=== PATIENT | female | born 1990 | race Hispanic/Latino ===

== ENCOUNTER 2017-02-27 07:50 | Inpatient (IN) | payer OTHER ==
[~2017-02-27] VITALS: Ht 152.4 cm; Wt 74.4 kg
[2017-02-27] VITALS (18 sets, daily range): BP systolic 95–146; BP diastolic 55–90
[~2017-02-27 07:50] MED LIST: GENTASOL0.3 % OD; NO HOME MEDICATION; OB COMPLET2 PO
[2017-02-27 09:31] LABS: HEMATOCRIT 34.3 % (37.0-47.0); HEMOGLOBIN 11.5 g/dl (12.0-16.0); IMMATURE GRANULOCYTES 1.1 % (0.0-1.0); MEAN CELL VOLUME 87.3 fL CALC (80.0-100.0); MEAN CORPUSCULAR HGB 29.3 pG CALC (26.0-32.0); MEAN CORPUSCULAR HGB CONC 33.5 g/L CALC (32.0-36.0); NEUT# 5.57 thou/uL (2.00-7.15); RED BLOOD COUNT 3.93 mill/uL (4.20-5.60); RED CELL DISTRI WIDTH 14.5 % (11.5-15.5)
[2017-02-27 09:44] LABS: ALBUMIN 3.1 g/dL (3.2-5.0); ALKALINE PHOSPHATASE 201 u/l (38-126); ANION GAP 11 (6-22 (CALC)); BILIRUBIN, TOTAL 0.4 mg/dL (0.0-1.4); BUN 5 mg/dL (7-17); BUN/CREATININE RATIO 11 (12-20 (CALC)); CALCIUM 8.7 mg/dL (8.4-10.2); CARBON DIOXIDE 22 mmol/l (22-30); CHLORIDE 107 mmol/l (95-108); CREATININE 0.5 mg/dL (0.5-1.0); GFR > 60 ML/MIN (>=60 (CALC)); GFR FOR AFR.AMER. > 60 ML/MIN (>=60 (CALC)); GLUCOSE 67 mg/dL (65-105); POTASSIUM 3.9 mmol/l (3.5-5.1); SGOT/AST 22 u/l (14-36); SGPT/ALT 32 u/l (9-52); SODIUM 136 mmol/l (137-146); TOTAL PROTEIN 6.3 g/dL (6.3-8.2)
[2017-02-28 06:00] VITALS: BP 98/56
[2017-02-28 06:08] LABS: HEMATOCRIT 28.9 % (37.0-47.0); HEMOGLOBIN 9.7 g/dl (12.0-16.0); IMMATURE GRANULOCYTES 0.9 % (0.0-1.0); MEAN CORPUSCULAR HGB 29.2 pG CALC (26.0-32.0); MEAN CORPUSCULAR HGB CONC 33.6 g/L CALC (32.0-36.0); NEUT# 8.42 thou/uL (2.00-7.15); RED BLOOD COUNT 3.32 mill/uL (4.20-5.60); RED CELL DISTRI WIDTH 14.6 % (11.5-15.5)
[2017-02-28 19:01] VITALS: BP 108/62
[2017-03-01 00:19] VITALS: BP 108/55
[2017-03-01 04:05] VITALS: BP 118/62
[2017-03-01] MEDS ORDERED: IBUPROFEN600 MG PO (07:54)
== END 2017-03-01 13:10 | disposition home or self-care (01) | DRG 775 ==
LOC: OBOP 07:50 → OB 07:50 → OBOP 07:59 → OB 08:00
PROVIDERS: ADMIT Obstetrics & Gynecology; ATTEND Obstetrics & Gynecology
PROC: 10E0XZZ Delivery of Products of Conception, External Approach (ICD-10-PCS; principal; 2017-02-27)
PROC: 10907ZC Drainage of Amniotic Fluid, Therapeutic from Products of Conception, Via Natural or Artificial Opening (ICD-10-PCS; 2017-02-27)
PROC: 3E033VJ Introduction of Other Hormone into Peripheral Vein, Percutaneous Approach (ICD-10-PCS; 2017-02-27)
DX: O48.0 Post-term pregnancy (principal); O77.0 Labor and delivery complicated by meconium in amniotic fluid; O69.81X0 Labor and delivery complicated by cord around neck, without compression, not applicable or unspecified; Z3A.41 41 weeks gestation of pregnancy; Z37.0 Single live birth

== ENCOUNTER 2017-03-29 18:23 | Emergency (ER) | payer SELFPAY ==
[~2017-03-29] VITALS: Ht 152.4 cm; Wt 85.0 kg
[~2017-03-29 18:23] MED LIST changes: +IBUPROFEN600 MG PO
[2017-03-29 19:22] LABS: URINE BILIRUBIN - DIPSTICK NEGATIVE (NEGATIVE); URINE BLOOD DIPSTICK MODERATE (NEGATIVE); URINE COLOR YELLOW; URINE GLUCOSE - DIPSTICK NEGATIVE (NEGATIVE); URINE KETONE NEGATIVE (NEGATIVE); URINE NITRITE - DIPSTICK NEGATIVE (Negative); URINE PH 6.5 (4.5-8.0); URINE PROTEIN - DIPSTICK NEGATIVE (NEG-TRACE); URINE UROBILINOGEN - DIPSTICK 0.2 E.U./dL (0.2)
[2017-03-29 20:21] LABS: URINE CLARITY CLOUDY; URINE LEUK ESTERASE MODERATE (NEGATIVE)
[2017-03-29 20:29] LABS: URINE BACTERIA FEW hpf; URINE RBC TNTC RBC/hpf (0-5); URINE SQUAMOUS EPITHELIAL CELL FEW EPI/hpf (0-FEW); URINE WBC TNTC WBC/hpf (0-5)
[2017-03-29] MEDS ORDERED: CEPHALEXIN500 MG PO (20:42)
[2017-03-29 21:13] VITALS: BP 112/68
== END 2017-03-29 21:13 | disposition home or self-care (01) | DRG 690 ==
LOC: ED 18:23
PROVIDERS: Emergency Medicine
DX: N39.0 Urinary tract infection, site not specified (principal); H57.12 Ocular pain, left eye; N61.0 Mastitis without abscess; R51 Headache; R50.9 Fever, unspecified

== ENCOUNTER 2019-05-08 03:03 | Emergency (ER) | payer SELFPAY ==
[~2019-05-08] VITALS: Ht 152.4 cm; Wt 68.0 kg
[~2019-05-08 03:03] MED LIST changes: +CEPHALEXIN500 MG PO
[2019-05-08] MEDS ORDERED: KEFLEX500 M1 PO (03:32)
[2019-05-08 03:40] VITALS: BP 114/72
== END 2019-05-08 03:43 | disposition home or self-care (01) | DRG 601 ==
LOC: ED 03:03
DX: N61.0 Mastitis without abscess (principal)

== ENCOUNTER 2020-04-08 18:05 | Emergency (ER) | payer SELFPAY ==
[~2020-04-08] VITALS: Ht 152.4 cm; Wt 75.5 kg
[~2020-04-08 18:05] MED LIST changes: +KEFLEX500 M1 PO
[2020-04-08] MEDS ORDERED: NAPROXEN500 MG PO (19:14)
[2020-04-08 19:20] VITALS: BP 113/69
== END 2020-04-08 19:20 | disposition home or self-care (01) | DRG 563 ==
LOC: ED 18:05
DX: S43.402A Unspecified sprain of left shoulder joint, initial encounter (principal); X50.0XXA Overexertion from strenuous movement or load, initial encounter; Y93.89 Activity, other specified; Y92.003 Bedroom of unspecified non-institutional (private) residence as the place of occurrence of the external cause

== ENCOUNTER 2021-01-02 16:11 | Emergency (ER) | payer SELFPAY ==
[~2021-01-02] VITALS: Ht 152.4 cm; Wt 65.0 kg
[~2021-01-02 16:11] MED LIST changes: +NAPROXEN500 MG PO
[2021-01-02 17:09] LABS: HEMATOCRIT 38.2 % (37.0-47.0); HEMOGLOBIN 12.7 g/dl (12.0-16.0); IMMATURE GRANULOCYTES 0.3 % (0.0-5.0); MEAN CORPUSCULAR HGB 30.2 pG CALC (26.0-32.0); MEAN CORPUSCULAR HGB CONC 33.2 g/dL CAL (32.0-36.0); NEUT# 4.56 thou/uL (2.00-7.15); RED BLOOD COUNT 4.2 mill/uL (4.20-5.60)
[2021-01-02 17:20] LABS: ANION GAP 12 (6-22 (CALC)); BILIRUBIN, TOTAL 0.5 mg/dL (0.0-1.4); BUN 12 mg/dL (7-17); BUN/CREATININE RATIO 20 (12-20 (CALC)); CARBON DIOXIDE 26 mmol/l (22-30); CHLORIDE 103 mmol/l (95-108); CREATININE 0.6 mg/dL (0.5-1.0); GFR > 60 ML/MIN (>=60 (CALC)); GFR FOR AFR.AMER. > 60 ML/MIN (>=60 (CALC)); LIPASE 67 u/l (23-300); POTASSIUM 3.8 mmol/l (3.5-5.1); SGOT/AST 32 u/l (14-36); SODIUM 137 mmol/l (137-146)
[2021-01-02 17:23] LABS: ALBUMIN 4.6 g/dL (3.2-5.0); ALKALINE PHOSPHATASE 82 u/l (38-126); TOTAL PROTEIN 8.2 g/dL (6.3-8.2)
[2021-01-02 19:30] LABS: URINE BILIRUBIN - DIPSTICK NEGATIVE (NEGATIVE); URINE BLOOD DIPSTICK LARGE (NEGATIVE); URINE COLOR YELLOW; URINE GLUCOSE - DIPSTICK NEGATIVE (NEGATIVE); URINE KETONE NEGATIVE (NEGATIVE); URINE LEUK ESTERASE NEGATIVE (NEGATIVE); URINE NITRITE - DIPSTICK NEGATIVE (Negative); URINE PROTEIN - DIPSTICK NEGATIVE (NEG-TRACE); URINE SPECIFIC GRAVITY <=1.005; URINE UROBILINOGEN - DIPSTICK 0.2 E.U./dL (0.2)
[2021-01-02 19:45] LABS: URINE SQUAMOUS EPITHELIAL CELL FEW EPI/hpf (0-FEW); URINE WBC 0-2 WBC/hpf (0-5)
[2021-01-02] MEDS ORDERED: EQ OMEPRAZOLE20 MG PO (19:49)
[2021-01-02 20:10] VITALS: BP 112/60
== END 2021-01-02 20:10 | disposition home or self-care (01) | DRG 392 ==
LOC: ED 16:11
PROVIDERS: Family Medicine
DX: K29.70 Gastritis, unspecified, without bleeding (principal)
CPT/HCPCS: Q9967

== ENCOUNTER 2021-09-18 17:14 | Emergency (ER) | payer SELFPAY ==
[~2021-09-18] VITALS: Ht 152.4 cm; Wt 72.0 kg
[~2021-09-18 17:14] MED LIST changes: +EQ OMEPRAZOLE20 MG PO
[2021-09-18] MEDS ORDERED: AMOX/K CLAV875 M1 PO (19:57)
[2021-09-18 20:10] VITALS: BP 110/63
== END 2021-09-18 20:10 | disposition home or self-care (01) | DRG 159 ==
LOC: ED 17:14
DX: K04.7 Periapical abscess without sinus (principal)

== ENCOUNTER 2022-05-26 16:24 | Emergency (ER) | payer SELFPAY ==
[~2022-05-26] VITALS: Ht 152.4 cm; Wt 100.0 kg
[~2022-05-26 16:24] MED LIST changes: +AMOX/K CLAV875 M1 PO
[2022-05-26 16:33] VITALS: BP 111/74
[2022-05-26 16:45] VITALS: BP 111/69
[2022-05-26] MEDS ORDERED: PREDNISONE50 MG PO (16:56)
[2022-05-26 17:00] VITALS: BP 113/79
[2022-05-26 17:15] VITALS: BP 108/76
[2022-05-26 17:25] VITALS: BP 108/76
== END 2022-05-26 17:25 | disposition home or self-care (01) | DRG 159 ==
LOC: ED 16:24
DX: M26.621 Arthralgia of right temporomandibular joint (principal)

== ENCOUNTER 2022-09-24 08:26 | Emergency (ER) | payer SELFPAY ==
[~2022-09-24] VITALS: Ht 152.4 cm; Wt 86.0 kg
[~2022-09-24 08:26] MED LIST changes: +PREDNISONE50 MG PO
[2022-09-24 09:01] VITALS: BP 138/69
[2022-09-24 09:08] LABS: HEMATOCRIT 40.8 % (37.0-47.0); HEMOGLOBIN 13.7 g/dl (12.0-16.0); IMMATURE GRANULOCYTES 0.6 % (0.0-5.0); MEAN CELL VOLUME 91.9 fL CALC (80.0-100.0); MEAN CORPUSCULAR HGB 30.9 pG CALC (26.0-32.0); MEAN CORPUSCULAR HGB CONC 33.6 g/dL CAL (32.0-36.0); NEUT# 5.57 thou/uL (2.00-7.15); RED BLOOD COUNT 4.44 mill/uL (4.20-5.60); RED CELL DISTRI WIDTH 12.6 % (11.5-15.5)
[2022-09-24 09:22] LABS: ALBUMIN 4.6 g/dL (3.2-5.0); ALKALINE PHOSPHATASE 74 u/l (38-126); ANION GAP 12 (6-22 (CALC)); BILIRUBIN, TOTAL 0.3 mg/dL (0.0-1.4); BUN 9 mg/dL (7-17); BUN/CREATININE RATIO 17 (12-20 (CALC)); CARBON DIOXIDE 26 mmol/l (22-30); CHLORIDE 105 mmol/l (95-108); CREATININE 0.6 mg/dL (0.5-1.0); GFR FOR AFR.AMER. > 60 ML/MIN (>=60 (CALC)); GFR OTHER RACES > 60 ML/MIN (>=60 (CALC)); LIPASE 40 u/l (23-300); POTASSIUM 4.3 mmol/l (3.5-5.1); SGOT/AST 39 u/l (14-36); SODIUM 139 mmol/l (137-146); TOTAL PROTEIN 8.4 g/dL (6.3-8.2)
[2022-09-24 09:31] VITALS: BP 100/35
[2022-09-24 10:28] LABS: URINE BILIRUBIN - DIPSTICK NEGATIVE (NEGATIVE); URINE BLOOD DIPSTICK NEGATIVE (NEGATIVE); URINE GLUCOSE - DIPSTICK NEGATIVE (NEGATIVE); URINE KETONE NEGATIVE (NEGATIVE); URINE LEUK ESTERASE NEGATIVE (NEGATIVE); URINE PH 6.5 (4.5-8.0); URINE PROTEIN - DIPSTICK NEGATIVE (NEG-TRACE); URINE SPECIFIC GRAVITY <=1.005; URINE UROBILINOGEN - DIPSTICK 0.2 E.U./dL (0.2)
[2022-09-24 10:29] LABS: URINE COLOR STRAW; URINE NITRITE - DIPSTICK NEGATIVE (Negative)
[2022-09-24 10:30] VITALS: BP 106/71
[2022-09-24] MEDS ORDERED: ZOFRAN4 MG/TAB PO (11:23)
[2022-09-24] MEDS ORDERED: MIRALAX17 GM PO (11:24)
[2022-09-24 11:48] VITALS: BP 106/71
== END 2022-09-24 11:48 | disposition home or self-care (01) | DRG 392 ==
LOC: ED 08:26
PROVIDERS: Family Medicine
DX: R10.9 Unspecified abdominal pain (principal); Z20.822 Contact with and (suspected) exposure to COVID-19
CPT/HCPCS: Q9967

== ENCOUNTER 2023-10-09 17:51 | Emergency (ER) | payer SELFPAY ==
[~2023-10-09] VITALS: Ht 152.4 cm; Wt 82.5 kg
[~2023-10-09 17:51] MED LIST changes: +MIRALAX17 GM PO; +ZOFRAN4 MG/TAB PO
[2023-10-09 17:59] VITALS: BP 125/81
[2023-10-09 18:00] VITALS: BP 137/84
[2023-10-09 18:35] VITALS: BP 115/65
[2023-10-09 18:40] LABS: BASO% 0.3 % (0-3); EOS% 1.5 % (0-8); HEMATOCRIT 39.4 % (37.0-47.0); IMMATURE GRANULOCYTES 0.3 % (0.0-5.0); LYMPH% 27.2 % (15-41); MEAN CORPUSCULAR HGB 29.7 pG CALC (26.0-32.0); MONO% 5.3 % (2-13); NEUT# 4.72 thou/uL (2.00-7.15); NEUT% 65.4 % (42-76); RED BLOOD COUNT 4.38 mill/uL (4.20-5.60); RED CELL DISTRI WIDTH 12.9 % (11.5-15.5)
[2023-10-09 18:41] LABS: URINE BILIRUBIN - DIPSTICK Negative (NEGATIVE); URINE BLOOD DIPSTICK Trace-lysed (NEGATIVE); URINE GLUCOSE - DIPSTICK Negative (NEGATIVE); URINE KETONE Negative (NEGATIVE); URINE LEUK ESTERASE Negative (NEGATIVE); URINE NITRITE - DIPSTICK Negative (Negative); URINE PH 5.5 (4.5-8.0); URINE PROTEIN - DIPSTICK 100 mg/dL (NEG-TRACE); URINE SPECIFIC GRAVITY >=1.030; URINE UROBILINOGEN - DIPSTICK 0.2 E.U./dL (0.2)
[2023-10-09 18:43] LABS: URINE COLOR Yellow
[2023-10-09 18:44] LABS: URINE SQUAMOUS EPITHELIAL CELL FEW EPI/hpf (0-FEW); URINE WBC 0-2 WBC/hpf (0-5)
[2023-10-09 18:45] VITALS: BP 109/68
[2023-10-09 18:55] LABS: ALBUMIN 4.5 g/dL (3.2-5.0); ALKALINE PHOSPHATASE 85 u/l (38-126); ANION GAP 14 (6-22 (CALC)); BILIRUBIN, TOTAL 0.4 mg/dL (0.02-1.3); BUN 18 mg/dL (7-17); BUN/CREATININE RATIO 31 (12-20 (CALC)); CARBON DIOXIDE 26 mmol/l (22-30); CHLORIDE 104 mmol/l (95-108); CREATININE 0.6 mg/dL (0.5-1.0); GFR FOR AFR.AMER. > 60 ML/MIN (>=60 (CALC)); GFR OTHER RACES > 60 ML/MIN (>=60 (CALC)); LIPASE 65 u/l (23-300); POTASSIUM 3.6 mmol/l (3.5-5.1); SGOT/AST 41 u/l (14-36); SODIUM 140 mmol/l (137-146)
[2023-10-09 19:00] VITALS: BP 111/64
[2023-10-09] MEDS ORDERED: MECLIZINE 2525 MG PO (20:35)
[2023-10-09] MEDS ORDERED: VIBRAMYCIN100 M2 PO (20:35)
[2023-10-09] MEDS ORDERED: ONDANSETRON4 MG PO (20:35)
[2023-10-09 21:04] VITALS: BP 111/64
== END 2023-10-09 21:22 | disposition home or self-care (01) | DRG 153 ==
LOC: ED 17:51
PROVIDERS: Nurse Practitioner
DX: J32.9 Chronic sinusitis, unspecified (principal); Z20.822 Contact with and (suspected) exposure to COVID-19